=== PATIENT | female | born 1985 | race Two or more races ===

== ENCOUNTER 2025-05-05 09:44 | Emergency (ER) | payer MEDICAID, SELFPAY ==
[2025-05-05 09:55] VITALS: BP 106/69; PULSE 94; RESP 16; TEMP 36.7; O2SAT 97; BMI 25.0
--- NOTE | 2025-05-05 10:05 | XR_ITS ---
Examination: Knee, right , 3 views Technique: Knee AP, lateral, oblique 3 views Date and time of exam: May 05, 2025 1012 hours INDICATIONS: Twisting injury to the knee this morning with knee pain. FINDINGS: Mild narrowing medial joint space No fracture or dislocation No opaque foreign body IMPRESSION: Negative for fracture
--- NOTE | 2025-05-05 11:10 | EDNOTE_ITS ---
Lower Extremity Injury RME/HPI General Chief Complaint: Extremity Injury, Lower Stated Complaint: pain to r leg s/p injury Time Seen by Provider: 05/05/25 09:53 Arrival date/time: 05/05/25 09:44 40-year-old female presents to the emergency department today stating that she tripped while outside of the garden today patient reports right knee pain patient reports no other injuries no head or neck injury no abdominal pain no chest pain no dizziness or weakness patient reports fall is mechanical Limitations: no limitations Related Data Home Medications ?Medication ?Instructions ?Recorded ?Confirmed Vitamin * 1 tab PO QDAY SUPPLEMENT #0 tabs 12/20/14 ferrous sulfate 325 mg (65 mg 325 mg PO QDAY SUPPLEMEN T #0 tabs 12/20/14 iron) tablet (Feosol) folic acid 1 mg tablet 1 mg PO QDAY SUPPLEMENT #0 t abs 12/20/14 Vitamin * 1 tab PO QDAY #0 tabs ferrous sulfate 325 mg (65 mg 325 mg PO BIDWM #0 tabs 03/26/15 iron) tablet (Feosol) Allergies Allergy/AdvReac Type Severity Reaction Status Date / Time latex Allergy Verified 05/05/25 09:46 Adhesives Allergy Mild rash, itchy Uncoded 02/02/15 13:09 Review of Systems Review of Systems Systems Reviewed: All systems reviewed, normal except as documented Constitutional Constitutional: Reports system reviewed and no additional complaints, except as documented, Denies fever(s) and Denies headache(s) Eyes Eyes: Reports system reviewed and no additional complaints, except as documented and Denies blurry vision ENT Ears, Nose, Mouth, and Throat: Reports system reviewed and no additional complaints, except as documented, Denies headache(s), Denies nasal congestion and Denies nasal discharge Cardiovascular Cardiovascular: Reports system reviewed and no additional complaints, except as documented, Denies chest pain and Denies dyspnea Respiratory Respiratory: Reports system reviewed and no additional complaints, except as documented, Denies chest congestion, Denies cough and Denies dyspnea Gastrointestinal Gastrointestinal: Reports system reviewed and no additional complaints, except as documented and Denies abdominal pain Musculoskeletal Musculoskeletal: Reports system reviewed and no additional complaints, except as documented, Reports abnormal gait, Reports arthralgias, Denies deformity, Denies numbness, Reports stiffness and Denies tingling Integumentary/Breasts Skin/Breast: Reports system reviewed and no additional complaints, except as documented and Denies rash Neurologic Neurologic: Reports system reviewed and no additional complaints, except as documented, Reports as per HPI, Reports abnormal gait, Denies headache(s), Denies numbness and Denies tingling Past Medical History Social History SMOKING STATUS: Never smoker ED Exam General Limitations: Present no limitations General appearance: Present alert and in no apparent distress Head Head exam: Present atraumatic Eye Eye exam: Present normal appearance, PERRL and EOMI ENT ENT exam: Present normal exam, normal oropharynx and mucous membranes moist Neck Neck exam: Present normal inspection, full ROM and trachea midline Chest Chest inspection: Present normal inspection and symmetric chest wall rise Respiratory Respiratory exam: Present normal lung sounds bilaterally Cardiovascular Cardiovascular exam: Present regular rate, normal rhythm and normal heart sounds Abdominal Exam Abdominal exam: Present soft and normal bowel sounds Extremities Exam Extremities exam: Present full ROM, tenderness (Right knee pain), normal capillary refill and joint swelling; Absent pedal edema or calf tenderness Back Exam Back exam: Present normal inspection and full ROM Neurological Exam Neurological exam: Present alert, oriented X3 and CN II-XII intact Psychiatric Psychiatric exam: Present normal affect and normal mood Skin Skin exam: Present warm, dry, intact and normal color Course Quality Measures none Orders Category Date Time Status XR knee RT 3V Stat Exams 05/05/25 10:05 Completed Ibuprofen Tab [Motrin Tab] Med 05/05/25 10:05 Discontinued 800 mg PO X1 ONE Vital Signs Vital signs: Vital Signs Temperature 98.1 F 05/05/25 09:55 Pulse Rate 94 05/05/25 09:55 Respiratory Rate 16 05/05/25 09:55 Blood Pressure 106/69 05/05/25 09:55 Pulse Oximetry (%) 97 05/05/25 09:55 Oxygen Delivery Method Room Air 05/05/25 09:55 O2 saturation 97% room air WNL Extremity Injury, Lower MDM Narrative MDM Narrative:: 40-year-old female presents to the emergency department today stating that she tripped while outside of the garden today patient reports right knee pain patient reports no other injuries no head or neck injury no abdominal pain no chest pain no dizziness or weakness patient reports fall is mechanical On exam patient well-appearing patient does not appear toxic no acute distress Imaging of right knee obtained no acute fracture dislocation noted Patient placed in Kyle wrap given crutches Patient instructed have outpatient MRI for further evaluation of the right knee Patient discharged home in no distress to follow-up with primary care doctor in the next 24 to 48 hours and for any worsening symptoms to return to the ER immediately Patient data External records reviewed:: [facility] previous records Clinical information provided by:: patient Social determinants that could affect healthcare access:: none Patient has the following chronic illnesses:: None How is presenting disease/condition affected by chronic disease/condition?: no chronic disease Evaluation data The following diagnostics were reviewed and interpreted by me:: radiology exam(s) Lab and/or radiology exams considered but not ordered:: Radiology obtain Interpretation Summary: Reviewed by me Medications / Prescriptions Medications or Prescriptions considered but not ordered:: Given Medication administrations:: Medication Administration History Discontinued Medications Ibuprofen (Ibuprofen Tab 400 Mg Tablet) 800 mg PO X1 ONE Stop: 05/05/25 10:06 Last Admin: 05/05/25 10:25 Dose: Not Given Documented By: OA Non-Admin Reason: Patient Refused Given Consultations Consultation(s) initiated? (list below): No Diagnosis Extremity Injury, Lower Differential Diagnosis: acute internal derangement of knee and other (Knee sprain, knee fracture) Most likely diagnosis given after review of the tests above:: Knee sprain Admission Indicated Admission indicated?: not indicated Admission Request Was there a request for admission?: No Disposition Plan Disposition Plan: Discharge Discharge Attestation Discharge Attestation: The patient and all family members were given an opportunity to ask questions and understood the discharge instructions. Discharge instructions specifically effects, indications for sooner follow up or return to the emergency department, and the expected course of current diagnosis. Patient condition: Stable Discharge Plan Plan Patient Disposition: HOME (Self Care) Discharge Disposition comment: Stable Prescriptions/Referrals Prescriptions/Med Rec: No Action ferrous sulfate [Feosol] 1 TAB tablet 325 mg PO QDAY Qty: 0 folic acid 1 MG tablet 1 mg PO QDAY Qty: 0 Vitamin * 1 EACH tablet 1 tab PO QDAY Qty: 0 ferrous sulfate [Feosol] 1 TAB tablet 325 mg PO BIDWM Qty: 0 Vitamin * 1 EACH tablet 1 tab PO QDAY Qty: 0 Referrals: Brandon Hamilton NP [Primary Care Provider] - 05/06/25 Problem List Clinical Impression: Acute internal derangement of knee Patient/Caregiver Discharge Instructions Education Materials: How Your Knee Works Additional Instructions: Please follow-up department care doctor request outpatient MRI if your pain persist for worsening symptoms return immediately Print Language: Czech Stand Alone Forms: Isabela Award Info., Work/School Release, Patient Portal Info Letter PA/[employer] Supervising Physician PA/[employer] Supervising Physician: Dr. [email or web address]
== END 2025-05-05 11:49 | disposition home or self-care (01) ==
PROVIDERS: Emergency Provider Emergency Medicine; PCP Nurse Practitioner Family
DX: M23.91 Unspecified internal derangement of right knee (principal)
CPT/HCPCS: 73562; 99283